=== PATIENT | male | born 1970 | race African-American/Black ===

== ENCOUNTER → 2025-01-24 | Outpatient (CLI) | payer SELFPAY ==
--- NOTE | 2025-01-24 14:24 | XR ---
EXAMINATION TYPE: XR foot complete RT DATE OF EXAM: 01/24/2025 COMPARISON: NONE HISTORY: Pain contusion, plantar surface. TECHNIQUE: Frontal, lateral and oblique images of the right foot are obtained. FINDINGS: There is no acute fracture/dislocation evident. Minimal first MTP joint narrowing with scl erosis and subchondral cystic changes. The remaining joint spaces appear within normal limits. The overlying soft tissue appears unremarkable. No radiopaque foreign body.Incidental note is made of sym phalangism of the third, fourth and fifth distal interphalangeal joints. IMPRESSION: 1. No acute fracture or dislocation. 2. 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 [facility], , 01/24/2025 2:22 PM
== END | disposition home or self-care (01) ==
LOC: RADXRMAIN 13:58
PROVIDERS: ATTEND Internal Medicine
DX: M19.071 Primary osteoarthritis, right ankle and foot (principal); F15.20 Other stimulant dependence, uncomplicated